=== PATIENT | female | born 1980 | race Caucasian/White ===

== ENCOUNTER → 2019-01-11 16:29 | Outpatient (CLI) | payer OTHER, SELFPAY ==
[2017-02-26 08:21] VITALS: BMI 33.5
[2019-01-11 20:01] LABS: Chlamydia Trachomatis by PCR Negative (Negative); Neisserai gonorrhoeae by PCR Negative (Negative); Probe Check PASS; Sample Adequacy Control PASS; Specimen Processing Control PASS
[2019-01-14 18:33] LABS: HPV APTIMA, High Risk Negative (Negative)
== END ==
PROVIDERS: Visit Provider Obstetrics & Gynecology
DX: Z12.4 Encounter for screening for malignant neoplasm of cervix (principal); Z11.3 Encounter for screening for infections with a predominantly sexual mode of transmission
CPT/HCPCS: 87491; 87591; 87624; 88175; G0145

== ENCOUNTER → 2019-02-08 10:01 | Outpatient (CLI) | payer OTHER, SELFPAY ==
[2019-02-08 10:34] LABS: Absolute Lymphocyte Count 1.94 X10^3/ul (0.83-4.51); Absolute Neutrophil Count 8.7 X10^3/uL (2.0-7.7); Basophil# 0.05 X10^3/uL; Basophil% 0.4 % (0-1); Eosinophil# 0.13 X10^3/uL; Eosinophils% 1.1 % (0-5); Hematocrit 40.6 % (37-47); Hemoglobin 13.5 g/dl (12.0-15.0); Lymphocyte # 1.94 X10^3/ul (4.0); Mean Corp Hgb Conc 33.3 g/gl (32-36); Mean Corpuscular Hgb 30.2 pg (27.0-32.0); Mean Corpuscular Volume 90.8 fL (81-99); Mean Platelet Vol. 9.7 fl (6.2-12.0); Monocyte# 0.61 X10^3/uL; Monocyte% 5.3 % (0-10); Neutrophil # 8.68 X10^3/uL (2.7-7.7); Neutrophil % 75.9 % (47-70); Platelet Count 414 K/mm3 (150-450); RBC Distribution Width CV 12.3 % (11.6-14.6); RBC Distribution Width SD 39.7 fl (35.1-43.9); Red Blood Count 4.47 M/mm3 (4.2-5.4); White Blood Count 11.4 K/mm3 (4.4-11.0)
[2019-02-08 10:35] LABS: POSITIVE COUNT NO; POSITIVE DIFFERENTIAL NO; POSITIVE MORPHOLOGY NO
[2019-02-08 10:40] LABS: Color, Urine Straw (Yellow); Glucose, Dipstick 50 mg/dl (Normal); Ketone-Dipstick Negative (Negative); Leukocyte Esterase-Dipstick 25 /ul (Negative); Nitrite-Dipstick Negative (Negative); Occult Blood-Urine Negative /ul (Negative); Protein-Dipstick Negative (Negative); Urine Bilirubin Dipstick Negative (Negative); Urine Clarity Clear (Clear); Urine Urobilinogen Normal (Normal)
[2019-02-08 10:48] LABS: Amphetamine Urine VISTA NEGATIVE (<1000 ng/mL); Barbiturate Urine VISTA NEGATIVE (< 200 ng/mL); Benzodiazepine Urine VISTA NEGATIVE (< 200 ng/mL); Cocaine Urine VISTA NEGATIVE (< 300 ng/mL); Ecstacy Urine VISTA NEGATIVE (< 500 ng/mL); Methadone Urine VISTA NEGATIVE (< 300 ng/mL); PCP Urine VISTA NEGATIVE (< 25 ng/mL); THC Urine VISTA NEGATIVE (< 50 ng/mL); Vista UDS pH Range 7
[2019-02-08 11:15] LABS: Thyroid Stim Hormone (TSH) 0.37 uIU/mL (0.358-3.74)
[2019-02-08 11:59] LABS: HIV - WCH Non-Reactive (Nonreactive); Rubella IgG 43.8 IU/mL; Vitamin D,25 Hydroxy 17.5 ng/mL (29.95-100.01)
[2019-02-08 13:04] LABS: Hemoglobin A1c 5.6 % (4.2-6.3)
[2019-02-09 11:40] LABS: HEPATITIS B SURFACE AG Negative (Negative); Hep C Antibodies <0.1 s/co ratio (0.0-0.9)
[2019-02-10 20:19] LABS: Prenatal RPR NONREACTIVE (NONREACTIVE)
== END ==
PROVIDERS: Visit Provider Obstetrics & Gynecology
DX: Z34.81 Encounter for supervision of other normal pregnancy, first trimester (principal)
CPT/HCPCS: 36415; 80307; 81002; 82306; 83036; 84443; 85025; 86703; 86762; 86803; 87340

== ENCOUNTER → 2019-06-10 | Outpatient (CLI) | payer OTHER, SELFPAY ==
[2019-06-10 17:26] LABS: Hematocrit 36.5 % (37-47); Hemoglobin 11.8 g/dl (12.0-15.0); Mean Corp Hgb Conc 32.3 g/gl (32-36); Mean Corpuscular Hgb 29.5 pg (27.0-32.0); Mean Corpuscular Volume 91.3 fL (81-99); Mean Platelet Vol. 9.8 fl (6.2-12.0); Platelet Count 315 K/mm3 (150-450); RBC Distribution Width CV 13.8 % (11.6-14.6); RBC Distribution Width SD 45.6 fl (35.1-43.9); Scan Indicated on CBC? Y/N NO
[2019-06-10 17:27] LABS: Glucose Challenge Gest 1H 50g 159 mg/dL (70-140)
== END | disposition home or self-care (01) ==
LOC: WOBLAB 15:34
PROVIDERS: Visit Provider Obstetrics & Gynecology
DX: Z34.82 Encounter for supervision of other normal pregnancy, second trimester (principal)
CPT/HCPCS: 36415; 82950; 85027

== ENCOUNTER → 2019-06-22 | Outpatient (CLI) | payer OTHER, SELFPAY ==
[2019-06-22 07:24] LABS: Glucose GTT-Gestation. Fasting 110 mg/dL (<105)
[2019-06-22 08:44] LABS: Glucose GTT-Gestational 1 Hr 217 mg/dL (<190)
[2019-06-22 10:01] LABS: Glucose GTT-Gestational 2 Hr 199 mg/dL (<165)
[2019-06-22 10:57] LABS: Glucose GTT-Gestational 3 Hr 106 L (<145)
== END | disposition home or self-care (01) ==
LOC: LAB 06:49
PROVIDERS: Family Provider Family Medicine; PCP Family Medicine; Referring Provider Obstetrics & Gynecology; Visit Provider Obstetrics & Gynecology
DX: O24.912 Unspecified diabetes mellitus in pregnancy, second trimester (principal); Z3A.00 Weeks of gestation of pregnancy not specified
CPT/HCPCS: 36415; 82951; 82952

== ENCOUNTER → 2019-07-25 | Outpatient (CLI) | payer OTHER, SELFPAY ==
[2019-07-25 18:10] LABS: Fetal Fibronectin Negative
== END | disposition home or self-care (01) ==
LOC: LABSPEC 17:20
PROVIDERS: Visit Provider Obstetrics & Gynecology
DX: Z34.83 Encounter for supervision of other normal pregnancy, third trimester (principal)
CPT/HCPCS: 82731

== ENCOUNTER 2019-08-07 08:45 | Outpatient (CLI) | payer OTHER, SELFPAY ==
[2019-08-07 09:42] VITALS: BMI 35.6
--- NOTE | 2019-08-07 22:49 | OB.TRI.NOTE ---
History of Present Illness Was patient seen by the physician?: No Reason For Visit: NST Date of Service: 08/07/19 Final TRINIDAD: 09/05/19 Final TRINIDAD Source: US <20 weeks Gestational age: 35 Weeks and 6 Days History of Present Illness: 35+ week intrauterine presents for routine nonstress test for gestational diabetes. Allergies Sulfa (Sulfonamide Antibiotics) Allergy (Verified 02/26/17 08:24) Rash NST - FHR Rate Baby A NST Reactive:: Yes FHR Category:: Category I Impression/Plan 35+ week intrauterine with gestational diabetes for routine nonstress test. Non Stress test is reactive. Routine follow-up in the office later this week.
== END 2019-08-07 09:45 | disposition home or self-care (01) ==
LOC: WPOUT 09:05 → WP 09:07
PROVIDERS: Visit Provider Obstetrics & Gynecology
DX: O24.419 Gestational diabetes mellitus in pregnancy, unspecified control (principal); Z3A.35 35 weeks gestation of pregnancy
CPT/HCPCS: 59025

== ENCOUNTER 2019-08-13 11:15 | Outpatient (CLI) | payer OTHER, SELFPAY ==
[2019-08-13 11:26] VITALS: BMI 35.6
--- NOTE | 2019-08-13 14:04 | OB.TRI.NOTE ---
- Problem List (1) Gestational diabetes mellitus Status: Acute Qualifiers: Gestational diabetes mellitus control: insulin-controlled Trimester: third trimester Qualified Code(s): O24.414 - Gestational diabetes mellitus in , insulin controlled History of Present Illness Date of Service: 08/13/19 Was patient seen by the physician?: Yes Reason For Visit: NONSTRESS TEST Final TRINIDAD: 09/05/19 Final TRINIDAD Source: LMP Gestational age: 36 Weeks and 5 Days History of Present Illness: 39yo @ 36 5/7wga with hx GDM on insulin with macrosomia for scheduled NST Allergies Sulfa (Sulfonamide Antibiotics) Allergy (Verified 08/13/19 11:28) Rash NST - FHR Rate Baby A Baseline: 145 Variability:: Moderate Accelerations:: 15 x 15 Decelerations:: None NST Reactive:: Yes FHR Category:: Category I Uterine Activity:: 1-02/06 Impression/Plan Reactive NST, Cat I FHR -d/c home
== END 2019-08-13 12:55 | disposition home or self-care (01) ==
PROVIDERS: Referring Provider Obstetrics & Gynecology; Visit Provider Obstetrics & Gynecology
DX: O24.414 Gestational diabetes mellitus in pregnancy, insulin controlled (principal); Z3A.36 36 weeks gestation of pregnancy
CPT/HCPCS: 59025; 59050; 99218; G0378

== ENCOUNTER → 2019-08-17 | Outpatient (CLI) | payer OTHER, SELFPAY ==
[2019-08-13 11:26] VITALS: BMI 35.6
== END | disposition home or self-care (01) ==
LOC: LABSPEC 13:39
PROVIDERS: Visit Provider Obstetrics & Gynecology
DX: Z36.85 Encounter for antenatal screening for Streptococcus B (principal)
CPT/HCPCS: 87081

== ENCOUNTER 2019-08-20 08:53 | Outpatient (CLI) | payer OTHER, SELFPAY ==
[2019-08-20 09:17] VITALS: BMI 36.1
--- NOTE | 2019-08-20 23:32 | OB.TRI.NOTE ---
History of Present Illness Date of Service: 08/20/19 Was patient seen by the physician?: No Reason For Visit: NST Date of Service: 08/20/19 Final TRINIDAD: 09/15/19 Final TRINIDAD Source: LMP Gestational age: 36 Weeks and 2 Days History of Present Illness: NST for Gestational DM Allergies Sulfa (Sulfonamide Antibiotics) Allergy (Verified 08/13/19 11:28) Rash NST - FHR Rate Baby A Baseline: 135 Variability:: Moderate Accelerations:: 15 x 15 Decelerations:: None NST Reactive:: Yes FHR Category:: Category I Uterine Activity:: irritabiligty with occasional contractions Impression/Plan Assessment: IUP @ 37w5d, gestational DM Scheduled NST, reactive Plan: Continue scheduled NSTs,follow up in office at next scheduled PNV
== END 2019-08-20 09:40 | disposition home or self-care (01) ==
LOC: WPOUT 08:57 → WP 08:58
PROVIDERS: Referring Provider Advanced Practice Midwife; Visit Provider Advanced Practice Midwife
DX: O24.419 Gestational diabetes mellitus in pregnancy, unspecified control (principal); Z3A.36 36 weeks gestation of pregnancy
CPT/HCPCS: 59025

== ENCOUNTER 2019-08-25 16:00 | Inpatient (IN) | payer OTHER, SELFPAY ==
[2019-08-25] VITALS (11 sets, daily range): BP systolic 119–135; BP diastolic 52–93; PULSE 80–90; RESP 14–18; TEMP 35.8–36.6; O2SAT 97–99; BMI 36.2
[2019-08-25 16:30] LABS: Bedside Glucose 74 mg/dL (70-110)
[2019-08-25] MEDS: Lactated Ringers 1,000 ML 999 ML IV (16:33)
[2019-08-25 17:05] LABS: Absolute Lymphocyte Count 1.93 X10^3/uL (0.83-4.51); Absolute Neutrophil Count 8.1 X10^3/uL (2.0-7.7); Basophil# 0.05 X10^3/uL; Basophil% 0.5 % (0-1); Eosinophil# 0.15 X10^3/uL; Eosinophils% 1.4 % (0-5); Hematocrit 37.6 % (37-47); Hemoglobin 12.6 g/dL (12.0-15.0); Lymphocyte # 1.93 X10^3/ul (4.0); Lymphocyte % 17.5 % (19-41); Mean Corp Hgb Conc 33.5 g/dL (32-36); Mean Corpuscular Hgb 30.4 pg (27.0-32.0); Mean Corpuscular Volume 90.8 fL (81-99); Mean Platelet Vol. 9.9 fl (6.2-12.0); Monocyte# 0.79 X10^3/uL; Monocyte% 7.2 % (0-10); NRBC Flagged by Analyzer 0 % (0-5); Neutrophil # 8.05 X10^3/uL (2.7-7.7); Neutrophil % 72.9 % (47-70); Platelet Count 330 K/mm3 (150-450); RBC Distribution Width CV 13.7 % (11.6-14.6); RBC Distribution Width SD 46.3 fl (35.1-43.9); Red Blood Count 4.14 M/mm3 (4.2-5.4)
[2019-08-25] MEDS: Sodium Citrate/Citric Acid 30 ML UDC PO (17:07)
[2019-08-25] MEDS: Lactated Ringers 1,000 ML 150 ML IV (17:34)
[2019-08-25 17:41] LABS: Bedside Glucose 72 mg/dL (70-110)
--- NOTE | 2019-08-25 18:01 | PCM.HP.OB ---
- Problem List (1) Decreased movement Status: Acute Qualifiers: Fetus number: single or unspecified fetus Trimester: third trimester Qualified Code(s): O36.8130 - Decreased movements, third trimester, not applicable or unspecified (2) Macrosomia Status: Acute (3) Gestational diabetes mellitus Status: Acute Qualifiers: Gestational diabetes mellitus control: insulin-controlled History Date of Admission: 08/25/19 Final TRINIDAD: 09/05/19 Final TRINIDAD Source: LMP Gestational age: 38 Weeks and 3 Days History of this : This is a 39 year-old, G [4], P [2012], at 38 3/7 weeks gestational age with insulin controlled gestational diabetes, macrosomia with decreased movement since Thursday. Last movement noted today. Also c/o contractions. No leaking of fluid or vaginal bleeding. US with MFM on 08/22/19 with EFW [id number]. Medical History: Medical History (Last Updated 08/25/19 @ 18:03 by Genie Rosenberg MD) Varicosities of leg I83.90 left leg Allergies Sulfa (Sulfonamide Antibiotics) Allergy (Verified 08/13/19 11:28) Rash Home Medications: Home Medications Vits [Prenatabs FA ] 1 tab PO DAILY 02/26/17 Insulin Aspart [Novolog Vial] 10 units SQ BREAKFAST 08/13/19 Insulin Aspart [Novolog Vial] 10 units SUBCUT DINNER 08/13/19 Insulin Aspart [Novolog Vial] 12 units SQ LUNCH 08/13/19 Insulin NPH Human Isophane [Novolin N] 20 unit SQ BREAKFAST 08/13/19 Insulin NPH Human Isophane [Novolin N] 30 units SUBCUT QHS 08/13/19 Smoking Status: Never smoker Alcohol: None Number of Fetus(es): 1 NST - FHR Rate Baby A Baseline: 130 Variability:: Moderate Accelerations:: 15 x 15 Decelerations:: None NST Reactive:: Appropriate for gestational age FHR Category:: Category I Uterine Activity:: 3/10 History Past Pregnancies: Past Pregnancies Delivery Date Name GA/Weeks Outcome Route Weight Infant Gender Labor Length Anesthesia Delivery Location 12/2000 6 SAB HOME 12/2008 [place] 38 Living 6lb6oz M 16 [facility] 01/2017 [place] 39 Living 8lb3oz F 11 Epidural [facility] Labs: Mom's Problem List Problem Status Onset Code Decreased movement Acute O36.8190 Macrosomia Acute P08.0 Mom's Labs & Results 08/25/19 08/25/19 08/25/19 16:25 16:30 16:30 WBC 11.0 RBC 4.14 L Hgb 12.6 Hct 37.6 MCV 90.8 MCH 30.4 MCHC 33.5 RDW Std Deviation 46.3 H RDW Coeff of Jose Manuel 13.7 Plt Count 330 MPV 9.9 Immature Gran % (Auto) 0.500 Neut % (Auto) 72.9 H Lymph % (Auto) 17.5 L [place] % (Auto) 7.2 Eos % (Auto) 1.4 Baso % (Auto) 0.5 Absolute Neuts (auto) 8.1 H Absolute Lymphs (auto) 1.93 Nucleated RBC % 0 POC Glucose 74 Blood Type O POSITIVE Antibody Screen NEGATIVE 08/25/19 17:33 WBC RBC Hgb Hct MCV MCH MCHC RDW Std Deviation RDW Coeff of Jose Manuel Plt Count MPV Immature Gran % (Auto) Neut % (Auto) Lymph % (Auto) [place] % (Auto) Eos % (Auto) Baso % (Auto) Absolute Neuts (auto) Absolute Lymphs (auto) Nucleated RBC % POC Glucose 72 Blood Type Antibody Screen Course Did the patient receive Yes care? Labs Blood Type: O RH: POSITIVE RPR/VDRL/Syphilis Nonreactive Rubella status Immune HbSAg Negative Date Done: 02/08/19 Chlamydia Negative Gonorrhea Negative HIV/AIDS Non-Reactive Group B Strep: Negative Current Obstetrical History Gestational Diabetes Yes Incompetent Cervix No Infertility No IUGR No Macrosomia Yes Hypertension/Pre-eclampsia No Placenta Previa/Abruption No PTL/PROM No Uterine anomaly No Oligohydramnios No Polyhydramnios Yes Multiple gestation No Past Medical History Asthma No Diabetes No Hypertension No Heart disease No Mitral valve prolapse No Neurologic/Seizure disorder/ Yes: Grand mal tremors when younger Migraines Kidney disease No Liver disease No Varicosities Yes: left leg Clotting disorders/Hx of DVT No Thyroid Dysfunction No Other medical diseases No Psychiatric disorders No Major trauma No Abnormal PAP smear No Sleep apnea No Mammogram in the last 2 years No Social History Marital Status: Alleged father Saqib Hx Smoking No Smoking Status Never smoker Expected Delivery Method: Scheduled Section Number of Visits: 16 Review of Systems Constitutional: Denies: Anorexia, Fever Respiratory: Denies: Shortness of Breath Gastrointestinal: Denies: Nausea, Vomiting Gynecological: Denies: Vaginal bleeding Physical Exam Vitals: AVSS General: Alert, Oriented x3, Cooperative, No apparent distress HEENT: Atraumatic, Normocephalic Cardiovascular: Regular rate, Regular Rhythm, Normal S1, Normal S2 Lungs: Clear to auscultation, Normal air movement, No rhonchi, No wheeze, No rales Abdomen: Soft, Non Tender, Non-Distended, Gravid Extremities:: No edema, Other - left lower extremity varisosities Neurological: Neuro grossly intact PLASTIC PRESS MOLDER: Normal external genitalia Estimated gestational size: Appropriate for gestational size Presentation: Cephalic Cervix Dilation (cm): 4 Station: -3 Effacement (%): 60 Assessment/Plan All Active Problems (Last Updated 08/25/19 @ 18:03 by Genie Rosenberg MD) 39 weeks gestation of (Acute) Gestational diabetes mellitus (Acute) Decreased movement (Acute) Macrosomia (Acute) This is a 39 year-old, G [4], P [2012], at 38 3/7 weeks gestational age. -Proceed as planned for scheduled section -FS glucose at target
[2019-08-25] MEDS: Cefazolin 2 GM in 0.9% Normal Saline 100 ML IV (18:23)
[2019-08-25] MEDS: Ketorolac 30 MG/ML Syringe IV (19:16)
--- NOTE | 2019-08-25 19:38 | OP.PCM_ITS ---
Problem List (1) Decreased movement Status: Acute Qualifiers: Fetus number: single or unspecified fetus Trimester: third trimester Qualified Code(s): O36.8130 - Decreased movements, third trimester, not applicable or unspecified (2) Macrosomia Status: Acute (3) Gestational diabetes mellitus Status: Acute Qualifiers: Gestational diabetes mellitus control: insulin-controlled Report of Operation Description of Surgical Findings:: Normal-appearing tubes and ovaries bilaterally. Normal uterus. Infant weight 4695g (96zb2gd) Delivery Classification: Scheduled Final TRINIDAD: 09/05/19 Gestational age: 38 Weeks and 3 Days [place] doctor who attended delivery (if requested by OB): Rafael Garibay flight instructor: Kaelyn Friend Type of Anesthesia:: Spinal Date of Procedure: 08/25/19 Pre-Operative Diagnosis: 38-3/7 weeks gestational age, gestational diabetes insulin controlled, persistent decreased movement, macrosomia Post-Operative Diagnosis: 38 3/7 weeks gestational age, gestational diabetes - uncontrolled, persistent decreased movement, macrosomia Indications: 39-year-old 4 para 2-0-1-2 at 38-3/7 weeks gestational age with history of gestational diabetes on insulin with good control, macrosomia with resolving polyhydramnios. Patient had reported decreased movement. Given persistence decreased movement she was advised to proceed with delivery w ith previously planned section for macrosomia with EFW greater than 4500 g. The patient also desired tubal sterilization at the time of section. Procedural risks, benefits, indications and alternatives were reviewed. Patient indicated understanding of risk for tubal failure approximately 1 out of 535 women every 10 years, increased risk for ectopic should occur, menstrual related changes. Consents previously signed and again reviewed. Patient and her family were given opportunity to ask questions and questions were answered to their satisfaction. Indications for : Nonreassuring Status, - - Macrosomia Description of Procedure: The patient was taken to the operating room and spinal analgesia was administered. She is placed in a dorsal supine position with left lateral tilt. The perineum and abdomen were prepped and draped in sterile fashion. And the spinal was found to be adequate. A Pfannenstiel incision was made using a scalpel and brought down to incise the subcutaneous tissue and rectus fascia at the midline. Subcutaneous tissue was bluntly dissected off the fascia laterally. The fascial incision was dissected laterally and cephalad using curved Hdez scissors. The superior leaflet of the rectus fascia was grasped using Marcelo clamps and bluntly dissected and sharply dissected from the underlying rectus muscle. In a similar fashion the inferior rectus fascia was dissected from the underlying muscle. The rectus muscles were bluntly at the midline. The peritoneum was identified and entered [sharply]. The bladder blade was placed into the abdomen and the vesicouterine peritoneal fold identified. The fold was incised and a bladder flap created. Bladder blade was then repositioned to the abdomen. A low transverse hysterotomy was made using the [Metzenbaum scissors] to level of the membranes. The hysterotomy was extended bluntly cephalad and caudad. The membranes were then ruptured revealing clear fluid. The head was elevated and brought to the level of the hysterotomy and the infant delivered revealing vigorous [male] infant. The cord was doubly clamped and cut after 30 seconds. The infant was passed to awaiting [nursery personnel]. The placenta was [expressed] from the uterus and appeared intact on inspection. The uterus and adnexae was exteriorized and cleared of debris. The hysterotomy was then repaired using 0 Vicryl running lock suture. The right tube was grasped using Prasanna clamp and a defect creat ed in the mesosalpinx using the Bovie. Proximal and distal ampullary segment was tied using 2-0 plain gut. An approximately 2 cm intervening segment was excised and tagged using Vicryl suture. In similar fashion Winger tubal ligation was performed on the left side. There was good hemostasis at the tubes. Attention was turned to the hysterotomy and there appeared to be a small amount of bleeding thus a second imbricating layer was performed using 0 Vicryl running suture with excellent hemostasis obtained. The bladder blade was removed. The anterior cul-de-sac was cleared of debris. The peritoneum and rectus muscles were reapproximated using 2-0 Vicryl running suture. The rectus fascia was closed using 0 Vicryl running suture. The subcutaneous tissue was reapproximated using 2-0 Vicryl. The skin was closed using 4-0 Monocryl subcuticularly the DOUGH SHEETER under my supervision. Mepilex occlusive dressing was placed over the incision. The fundus was firm. The patient was then tr ansferred to the recovery room without complication. Sponge, instrument, and needle counts were correct ?2. Amniotic Membrane Rupture Type: Artificial Amniotic Fluid Description: Clear Placenta Disposition: [facility] Specimen(s) sent to pathology: 1. Bilateral tubes-right tube tagged 2. Placenta Drain: Aguilar to straight drain Fluids Replaced: 1200 mL Cord Entanglement: None Nuchal Cord Compression: Without compression Cord Vessel Description: 3 Vessels Esitmated Blood Loss (ml): 900 Gender: Male (1 minute): 8 (5 minute): 9 Delayed cord clamping: Yes Antibiotic Given: Ancef 2 grams IV x1 Pt instructed on risks of surgery: Bleeding, Anesthesia Risks, Infection, Failure Rate of 1 to 2%, Injury to surrounding structure(s) including bowel and bladder, Availability of other non-permanent control options Complications: None - Admit VTE Documentation VTE Present on Admission: No VTE Mechan Device Prophylaxis: SCD's VTE Pharm Prophylaxis ordered?: No
[2019-08-25] MEDS: Oxytocin 30 units/NS 500 ml 30 UNITS/500 ML IV.SOLN 167 UNITS IV (19:55)
[2019-08-25 21:01] LABS: Bedside Glucose 93 mg/dL (70-110)
[2019-08-25] MEDS: Lactated Ringers 1,000 ML 100 ML IV (22:57)
[2019-08-26] VITALS (15 sets, daily range): BP systolic 107–121; BP diastolic 66–79; PULSE 70–107; RESP 14–18; TEMP 35.9–36.8; O2SAT 97–100
[2019-08-26] MEDS: Ketorolac 30 MG/ML Syringe IV ×3 (01:01→17:16)
--- NOTE | 2019-08-26 01:39 | PLAC_PTH ---
PATIENT: ZAIRA MCCLELLAND LOC: [facility] U#:[id number] AGE/SX: 39/F ROOM: WP006 RE08/25/[address]: Dr. Genie Huerta MD : 1980 BED: 1 DIS: 08/28/2019 SPEC #: [id number] RECD: 08/26/19 01:52 STATUS: ANGELICA SALVADOR #: [id number] MARISOL: 08/26/19 01:[address]: Genie Girard DEPT: SURGICAL PATHOLOGY RECD BY: Trinity Mcpherson ENTERED: 08/26/19 09:23 SP TYPE: PLACENTA OTHR DR: No Primary Care Phys Tissues: A - Placenta, NOS B - Fallopian tube Procedures: Surgery Specimen Level II Surgery Specimen Level V HEADER OPERATION: Repeat section PRE-OP DIAGNOSIS: Labor and delivery TISSUE SUBMITTED: A. Placenta, B. Fallopian tube MICROSCOPIC DIAGNOSIS A. Placenta: Placental disc - third trimester placenta (613 gm). - focal area of hypovascular villi (2 x 1.5 cm). Membranes - no pathologic diagnosis. Umbilical cord - three blood vessels and no pathologic diagnosis. B. Bilateral fallopian tubes, tubal ligation: Completely transected segments of bilateral fallopian tubes, no pathologic diagnosis. SJ:rg 08/30/19 COMMENT Case has been reviewed in consultation with Dr. Douglass who concurs with the above diagnosis. IDC:AM MICROSCOPIC DESCRIPTION Slides are reviewed. GROSS DESCRIPTION A - SPECIMEN: PLACENTA / CLINICAL INFORMATION: A. Weight: 4.695 kg B. Gestational Age: 38 weeks C. Sex: Male PLACENTAL WEIGHT (POST FIXATION): 613 gm PLACENTAL DIMENSIONS: 21 x 19 x 3.5 cm PLACENTAL SHAPE: Usual ovoid PLACENTAL WEIGHT FOR GESTATIONAL AGE: Over 99th percentile MEMBRANES - Present A. Insertion: Marginal B. Site of rupture from edge: At edge of placental disc C. Color of membrane: Leija-rosado D. Abnormalities: None UMBILICAL CORD - Present A. Color: Leija-rosado B. Insertion: Eccentric C. Length: 30 cm D. Diameter: 1.4 cm E. Number of vessels: Three F. Abnormalities: None PLACENTAL DISC - Present A. Color of surface: Leija-rosado B. surface abnormalities: None C. Maternal cotyledons: Intact with minimal tears D. Attached retro placental clot: No clot E. Cut surface: Dark red and spongy F. Lesions: One lesion, leija-white, 2 x 1.5 cm G. Separate clot: Absent SECTIONS SUBMITTED: 1. Umbilical cord ( end inked) 2. Membrane roll 3. Placental disc, and maternal surfaces, lesion 4. Placental disc, and maternal surfaces 5. Placental disc, and maternal surfaces AM:evie 08/29/19 B - Received is one container labeled with the patient's name and designated bilateral fallopian tubes, right side stitch. The specimen consists of two tubular pieces of leija soft tissue with the right identified with a stitch. The right fallopian tube measures 2 cm in length and 0.6 cm in diameter. The left fallopian tube measures 2 cm in length and 0.7 cm in diameter. The entire specimen is submitted in two cassettes as follows: 1 - right fallopian tube, 2 - left fallopian tube. Both pieces will be sectioned at the time of embedding. / SJ:evie 08/26/19 TC:5 CPT: 20591 x2, 94480
[2019-08-26 01:52] LABS: Pathology Specimen OB SEE PATHOLOGY REPORT
[2019-08-26 06:00] LABS: Bedside Glucose 90 mg/dL (70-110)
[2019-08-26 06:02] LABS: Hematocrit 33.8 % (37-47); Hemoglobin 11.2 g/dL (12.0-15.0); Mean Corp Hgb Conc 33.1 g/dL (32-36); Mean Corpuscular Hgb 30.8 pg (27.0-32.0); Mean Corpuscular Volume 92.9 fL (81-99); Mean Platelet Vol. 9.7 fl (6.2-12.0); Platelet Count 229 K/mm3 (150-450); RBC Distribution Width CV 13.6 % (11.6-14.6); RBC Distribution Width SD 45.7 fl (35.1-43.9); Red Blood Count 3.64 M/mm3 (4.2-5.4); White Blood Count 14.4 K/mm3 (4.4-11.0)
[2019-08-26] MEDS: Lactated Ringers 200 ML 999 ML IV (06:29)
[2019-08-26] MEDS: Acetaminophen 500 MG Tablet 1000 MG PO ×2 (06:30→17:16)
[2019-08-26] MEDS: Lactated Ringers 1,000 ML 100 ML IV (06:43)
--- NOTE | 2019-08-26 08:20 | PN.OBGYN_ITS ---
Patient Problems: Active and Suspected Problems (Last Updated 08/25/19 @ 18:03 by Genie Huerta MD) Decreased movement (Acute) Macrosomia (Acute) Subjective: No issues overnight. Denies nausea or vomiting. Tolerates PO. No flatus yet. OOB. Aguilar remains in situ. Denies pain. Infant is nursing well, but his sugars have been low. Objective: AVSS - Physical Exam General: Alert, Oriented x3, Cooperative, No apparent distress HEENT: Atraumatic, Normocephalic Lungs: Clear to auscultation, Normal air movement Cardiovascular: Regular rate, Regular Rhythm, Normal S1, Normal S2 Abdomen: Bowel Sounds Present, Soft, Non Tender, Non-Distended, - - Incisional dressing c/d/i, lochia scant Extremities: No edema, No Calf Tenderness Neurological: Neuro grossly intact Psych/Mental Status: Normal Affect, Appropriate, Alert and oriented to time, place, person, mood and affect Vital Signs Temp Pulse Resp BP Pulse Ox 97.5 F L 89 16 107/59 L 96 08/27/19 02:18 08/27/19 02:18 08/27/19 02:18 08/27/19 02:18 08/27/19 02:18 Oxygen Delivery Method Room Air Weight: 92.8 kg Body Mass Index (BMI) 36.2 Intake and Output for Last 24 Hours 08/25/19 08/26/19 08/27/19 23:59 23:59 23:59 Intake Total 2132.5 / 2132.5 2293.34 / 2293.34 Output Total 450 / 450 1100 / 1100 Balance 1682.5 / 1682.5 1193.34 / 1193.34 Medical Necessity - Tobacco Use Smoking Status: Never smoker Assessment/Plan All Active Problems (Last Updated 08/25/19 @ 18:03 by Genie Rosenberg MD) 39 weeks gestation of (Acute) Gestational diabetes mellitus (Acute) Decreased movement (Acute) Macrosomia (Acute) This is a 39 year-old, G [4], P [3013] POD#1 s/p PLTCS with BTL doing well. -Routine postop care - -Rh positive, Rubella immune
[2019-08-26 09:36] LABS: Pathology Specimen OB SEE PATHOLOGY REPORT
[2019-08-26] MEDS: 0.9% Saline Lock 10 ML Syringe IV ×2 (12:04→17:16)
[2019-08-26] MEDS: Prenatal Vits Tablet 1 TABLET PO (12:04)
[2019-08-27] MEDS: Ketorolac 30 MG/ML Syringe IV ×2 (00:32→06:24)
[2019-08-27] MEDS: 0.9% Saline Lock 10 ML Syringe IV ×2 (00:32→06:24)
[2019-08-27 02:18] VITALS: BP 107/59; PULSE 89; RESP 16; TEMP 36.4; O2SAT 96
--- NOTE | 2019-08-27 02:30 | NURSING ---
Patient is pumping every 2-3 hours and using swabs to collect milk. Using pump correctly and cleaning pump equipment properly.
--- NOTE | 2019-08-27 09:11 | DCINST_ITS ---
Discharge Diet: No Restrictions Discharge Activity: May not drive while taking narcotic pain medications., May Shower, - - No tub bath, No driving for 1-2 weeks May resume sexual activity in: 4-6 weeks Lifting Restrictions: 10 lb Call your doctor if your incision/area has: Continuous Slow Oozing, Sudden Increased Bleeding, Increased Pain/ Swelling, Increased Redness Suture Line Care: Avoid Pulling/Pushing Remove Dressing in (days):: 3 Cleanse incision/area with: Soap & Water Additional Instructions: If you experience any of the following, contact your healthcare provider. * Bleeding that soaks a pad every hour for 2 hours * Fever 100.4 or higher * Unrelieved incision or abdominal pain * Swelling, redness, discharge or bleeding from your incision or episiotomy site * Your incision begins to separate * Problems urinating (including inability to urinate or burning while urinating). * Visual changes * Severe headache * Flu-like symptoms * Pain or redness in one of both of your breasts * Pain, warmth, tenderness or swelling in your legs, especially the calf area * Frequent nausea and vomiting * Symptoms of depression or anxiety If you experience any of the following, call 911 or go to the nearest Emergency Room. * Chest pain * Problems breathing * Seizure activity * Partial or complete paralysis of a body part, slurred speech, weakness or drooping of the face, or a sudden inability to walk or hold your balance Allergies/Adverse Reactions: Allergies Sulfa (Sulfonamide Antibiotics) Allergy (Verified 08/13/19 11:28) Rash Medications to take at Discharge Vits [Prenatabs FA ] 1 tab PO DAILY 02/26/17 Follow-Up: Call to make an appointment with your doctor for an incision check in 1-2 weeks. You will also need a 6 week post- follow up appointment. Test results from this visit will be discussed in further detail at your follow- up appointment, if applicable. Please Follow Up With: Genie Rosenberg MD When: 1-2 weeks Primary Care Physician: Care Physician,No Primary [Primary Care Provider] -
--- NOTE | 2019-08-27 09:44 | PCM.PN.OB ---
Patient Problems: Active and Suspected Problems (Last Updated 08/25/19 @ 18:03 by Genie Rosenberg MD) Decreased movement (Acute) Macrosomia (Acute) Objective: Patient without complaints. Tolerating diet well. Pumping for breast-feeding and baby in special care nursery. Positive flatus. Wants to stay another day as baby is likely to go home tomorrow. - Physical Exam Vital Signs Temp Pulse Resp BP Pulse Ox 97.5 F L 89 16 107/59 L 96 08/27/19 02:18 08/27/19 02:18 08/27/19 02:18 08/27/19 02:18 08/27/19 02:18 Oxygen Delivery Method Room Air Weight: 204 lb 9.423 oz Body Mass Index (BMI) 36.2 Intake and Output for Last 24 Hours 08/25/19 08/26/19 08/27/19 23:59 23:59 23:59 Intake Total 2132.5 / 2132.5 2293.34 / 2293.34 Output Total 450 / 450 1100 / 1100 Balance 1682.5 / 1682.5 1193.34 / 1193.34 Wound is clean and without any evidence of oozing with Mepilex dressing in place. Good urine output. Medical Necessity - Tobacco Use Smoking Status: Never smoker Assessment/Plan All Active Problems (Last Updated 08/25/19 @ 18:03 by Genie Rosenberg MD) 39 weeks gestation of (Acute) Gestational diabetes mellitus (Acute) Decreased movement (Acute) Macrosomia (Acute) Doing well postoperative day #2 status post section. Continuing present care.
[2019-08-27] MEDS: Prenatal Vits Tablet 1 TABLET PO (12:02)
[2019-08-27] MEDS: Ibuprofen 600 MG Tablet PO ×2 (12:02→18:15)
[2019-08-27 14:00] VITALS: BP 128/70; PULSE 96; RESP 16; TEMP 36.4
[2019-08-27] MEDS: Acetaminophen 500 MG Tablet 1000 MG PO ×2 (14:02→22:58)
[2019-08-27 21:00] VITALS: BP 128/73; PULSE 96; RESP 16; TEMP 36.6; O2SAT 99
[2019-08-28] MEDS: Ibuprofen 600 MG Tablet PO ×3 (00:21→15:17)
[2019-08-28 01:50] VITALS: BP 116/81; PULSE 78; RESP 17; TEMP 36.4
[2019-08-28 08:00] VITALS: BP 124/89; PULSE 85; RESP 18; TEMP 36.7
[2019-08-28] MEDS: Acetaminophen 500 MG Tablet 1000 MG PO (12:21)
[2019-08-28] MEDS: Prenatal Vits Tablet 1 TABLET PO (12:21)
--- NOTE | 2019-08-28 14:29 | PN.OBGYN_ITS ---
Patient Problems: Active and Suspected Problems (Last Updated 08/25/19 @ 18:03 by Genie Huerta MD) Decreased movement (Acute) Macrosomia (Acute) Subjective: Feeling well, tolerating diet well, passing flatus and has had bowel movement; pain well controlled on non narcotic anagesics; infant in special care nursery, doing well; well Objective: AVSS Breasts filling, nipples atraumatic Fundus firm, midline, u/3, lochia scant - Physical Exam General: Alert, Oriented x3, Cooperative HEENT: PERRLA, EOMI Oral: Moist Mucosa Neck: Supple Lungs: Clear to auscultation, Normal air movement Cardiovascular: Regular rate, Regular Rhythm Abdomen: Bowel Sounds Present, Soft, Non Tender, Non-Distended, Passing Flatus Extremities: Capillary Refill Less than 3 Seconds, Edema - mild, bilateral lower extremities Skin: Incision - Pfannenstiel, dressing dry and intact Vital Signs Temp Pulse Resp BP Pulse Ox 98.1 F 85 18 124/89 H 99 08/28/19 08:00 08/28/19 08:00 08/28/19 08:00 08/28/19 08:00 08/27/19 21:00 Oxygen Delivery Method Room Air Weight: 204 lb 9.423 oz Body Mass Index (BMI) 36.2 Intake and Output for Last 24 Hours 08/26/19 08/27/19 08/28/19 23:59 23:59 23:59 Intake Total 2293.34 / 2293.34 Output Total 1100 / 1100 Balance 1193.34 / 1193.34 Medical Necessity - Tobacco Use Smoking Status: Never smoker Assessment/Plan All Active Problems (Last Updated 08/25/19 @ 18:03 by Genie Rosenberg MD) 39 weeks gestation of (Acute) Gestational diabetes mellitus (Acute) Decreased movement (Acute) Macrosomia (Acute) Assessment: PO/PP Day #3, normal postoperative course, normal involution Plan: Discharge instructions reviewed DC home later today when DC'd RTO two weeks for incision check
--- NOTE | 2019-08-28 15:23 | NURSING ---
baby care teaching per [facility]
--- NOTE | 2019-08-28 15:24 | NURSING ---
See [facility] for teaching
--- NOTE | 2019-08-28 18:29 | DCINST_ITS ---
Discharge Diet: No Restrictions Discharge Activity: May not drive while taking narcotic pain medications., May Shower, - - No tub bath, No driving for 1-2 weeks May resume sexual activity in: 4-6 weeks Lifting Restrictions: 10 lbs Call your doctor if your incision/area has: Continuous Slow Oozing, Sudden Increased Bleeding, Increased Pain/ Swelling, Increased Redness Suture Line Care: Avoid Pulling/Pushing Remove Dressing in (days):: 3 Cleanse incision/area with: Soap & Water Additional Instructions: If you experience any of the following, contact your healthcare provider. * Bleeding that soaks a pad every hour for 2 hours * Fever 100.4 or higher * Unrelieved incision or abdominal pain * Swelling, redness, discharge or bleeding from your incision or episiotomy site * Your incision begins to separate * Problems urinating (including inability to urinate or burning while urinating). * Visual changes * Severe headache * Flu-like symptoms * Pain or redness in one of both of your breasts * Pain, warmth, tenderness or swelling in your legs, especially the calf area * Frequent nausea and vomiting * Symptoms of depression or anxiety If you experience any of the following, call 911 or go to the nearest Emergency Room. * Chest pain * Problems breathing * Seizure activity * Partial or complete paralysis of a body part, slurred speech, weakness or drooping of the face, or a sudden inability to walk or hold your balance Allergies/Adverse Reactions: Allergies Sulfa (Sulfonamide Antibiotics) Allergy (Verified 08/13/19 11:28) Rash Medications to take at Discharge Vits [Prenatabs FA ] 1 tab PO DAILY 02/26/17 Insulin Aspart [Novolog Vial] 10 units SQ BREAKFAST 08/13/19 Insulin Aspart [Novolog Vial] 10 units SUBCUT DINNER 08/13/19 Insulin Aspart [Novolog Vial] 12 units SQ LUNCH 08/13/19 Insulin NPH Human Isophane [Novolin N] 20 unit SQ BREAKFAST 08/13/19 Insulin NPH Human Isophane [Novolin N] 30 units SUBCUT QHS 08/13/19 Follow-Up: Call to make an appointment with your doctor for an incision check in 1-2 weeks. You will also need a 6 week post- follow up appointment. Test results from this visit will be discussed in further detail at your follow- up appointment, if applicable. Primary Care Physician: Care Physician,No Primary [Primary Care Provider] -
--- NOTE | 2019-08-28 19:15 | NURSING ---
to [facility]
== END 2019-08-28 18:50 | disposition home or self-care (01) | DRG 785 ==
PROVIDERS: Admitting Provider Obstetrics & Gynecology; Referring Provider Obstetrics & Gynecology; Visit Provider Obstetrics & Gynecology
DX: O36.8130 Decreased fetal movements, third trimester, not applicable or unspecified (principal); O36.63X0 Maternal care for excessive fetal growth, third trimester, not applicable or unspecified; O24.424 Gestational diabetes mellitus in childbirth, insulin controlled; O69.81X0 Labor and delivery complicated by cord around neck, without compression, not applicable or unspecified; Z3A.38 38 weeks gestation of pregnancy; Z37.0 Single live birth
CPT/HCPCS: 59050; 82962; 85025; 85027; 86850; 86900; 86901; 88302; 88307; 99218; J7120; A4216; G0378; J2405

== ENCOUNTER → 2021-05-28 10:24 | Outpatient (CLI) | payer OTHER, SELFPAY ==
[2019-08-25 16:29] VITALS: BMI 36.2
[2021-05-28 11:32] LABS: Hemoglobin A1c 5.2 % (3.8-5.6)
== END ==
PROVIDERS: Visit Provider Obstetrics & Gynecology
DX: Z86.32 Personal history of gestational diabetes (principal)
CPT/HCPCS: 36415; 83036

== ENCOUNTER → 2021-06-07 15:28 | Outpatient (CLI) | payer OTHER, SELFPAY ==
[2019-08-25 16:29] VITALS: BMI 36.2
--- NOTE | 2021-06-07 15:51 | BI_ITS ---
MAMMOGRAPHY - BILATERAL SCREENING REASON FOR EXAM: Female, 41 years old. Routine annual screening examination. PERTINENT HISTORY: Aunt with breast cancer. TECHNIQUE: Digital bilateral breast lise (3D mammographic acquisition) in the CC and MLO projections. 2-D mediolateral oblique (MLO) and craniocaudad (CC) views of both breasts were obtained. CAD: Full Field Digital Mammography with Computer Added Detection was performed. COMPARISON: None. Baseline examination. FINDINGS: Breast Composition: The breasts are heterogeneously dense, which may obscure small masses. There are no dominant masses or suspicious calcifications. Benign-appearing bilateral axillary lymph nodes. No other significant abnormalities are identified. BI/SCRN MAMM (CAD)W/LISE BILAT IMPRESSION: Negative screening mammogram. Yearly followup mammogram recommended. (A) ASSESSMENT CATEGORY: BIRADS Category 2: Benign. A letter regarding these results will be sent to the patient by the facility within 30 days. Approximately 10% of breast cancers are not detected by mammography. A normal mammogram should not delay biopsy of a clinically suspicious abnormality. [id number] Electronically Signed: Frantz Huitron MD at 8:24 EDT , Service support ,
== END ==
LOC: OPBI 15:28
PROVIDERS: PCP Family Medicine; Referring Provider Obstetrics & Gynecology; Visit Provider Obstetrics & Gynecology
DX: Z12.31 Encounter for screening mammogram for malignant neoplasm of breast (principal)
CPT/HCPCS: 77063; 77067

== ENCOUNTER → 2025-04-17 | Outpatient (CLI) | payer BC, SELFPAY ==
--- NOTE | 2025-04-17 10:26 | RAD_ITS ---
PROCEDURE: HIP, UNI W/ PELVIS 2-3 VIEWS 04/17/2025 REASON FOR EXAM: RIGHT HIP PAIN TECHNIQUE: Three views of the right hip COMPARISON: None FINDINGS: No displaced fracture. There is cam type morphology of the right femoral head neck junction. Ftdg-[id number] joint space narrowing in the right hip. Soft tissues are unremarkable. RAD/HIP, UNI W/ Pelvis 2-3 Views IMPRESSION: 1. 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 2. Xugd-[id number] osteoarthritis of the right hip. Reading Location: [facility]
[2025-04-17 12:25] LABS: Absolute Lymphocyte Count 1.64 X10^3/uL (0.83-4.51); Absolute Neutrophil Count 3.4 X10^3/uL (2.0-7.7); Basophil# 0.06 X10^3/uL; Basophil% 1.1 % (0-1); Eosinophil# 0.17 X10^3/uL; Hemoglobin 13.2 g/dL (12.0-15.0); Lymphocyte # 1.64 X10^3/ul (0.83-4.51); Lymphocyte % 29.1 % (19-41); Mean Corpuscular Hgb 30.1 pg (27.0-32.0); Mean Corpuscular Volume 91.1 fL (81-99); Monocyte# 0.36 X10^3/uL; Monocyte% 6.4 % (0-10); NRBC Flagged by Analyzer 0 % (0-5); Neutrophil # 3.39 X10^3/uL (2.7-7.7); Platelet Count 374 K/mm3 (150-450); RBC Distribution Width CV 11.8 % (11.6-14.6); RBC Distribution Width SD 39.4 fl (35.1-43.9); Red Blood Count 4.39 M/mm3 (4.2-5.4); White Blood Count 5.6 K/mm3 (4.4-11.0)
[2025-04-17 13:27] LABS: Hemoglobin A1c 5.6 % (<=5.6)
[2025-04-17 13:54] LABS: Cholesterol 162 mg/dL (<=200); High Density Lipoprotein 56 mg/dL; Low Density Lipoprotein Calc. 96 mg/dL; Triglycerides 49 mg/dL; Very Low Density Lipoprotein 10 mg/dL (5-40); cholesterol:hdl ratio screen 2.88
[2025-04-17 13:58] LABS: Thyroid Stim Hormone (TSH) 0.626 uIU/mL (0.300-4.200); Vitamin D,25 Hydroxy 29.2 ng/mL (30-100)
== END | disposition home or self-care (01) ==
PROVIDERS: PCP Family Medicine; Referring Provider Family Medicine; Visit Provider Family Medicine
DX: M25.551 Pain in right hip (principal); Z13.1 Encounter for screening for diabetes mellitus; Z13.220 Encounter for screening for lipoid disorders
CPT/HCPCS: 36415; 73502; 80061; 82306; 83036; 84443; 85025

== ENCOUNTER → 2025-04-26 | Outpatient (CLI) | payer BC, SELFPAY ==
[2025-05-01 17:09] LABS: HPV APTIMA, High Risk Negative (Negative)
== END | disposition home or self-care (01) ==
LOC: LABSPEC 09:02
PROVIDERS: PCP Family Medicine; Referring Provider Family Medicine; Visit Provider Family Medicine
DX: Z12.4 Encounter for screening for malignant neoplasm of cervix (principal)
CPT/HCPCS: 88175; G0145

== ENCOUNTER → 2025-05-01 | Outpatient (CLI) | payer BC, SELFPAY ==
--- NOTE | 2025-05-01 14:34 | BI_ITS ---
EXAM: SCRN MAMM (CAD)W/LISE BILAT DATE: 05/01/2025 CLINICAL HISTORY: F, Age 44 y/o , SCREENING Patient noted a right breast palpable abnormality 3-1/2 weeks ago which is tender. She noted this at the time of her menses. She does have a maternal aunt who was diagnosed with breast cancer in her 70s. BREAST CANCER RISK ASSESSMENT: Has not been calculated. TECHNIQUE: Bilateral screening digital breast tomosynthesis with 2D and 3D images. Computer aided detection. COMPARISON: Prior exam(s) dated 06/07/2021. FINDINGS: TISSUE DENSITY: The breast tissue is heterogenously dense, which may obscure small masses. Bilateral Breast Mammographic Findings: A radiopaque marker is placed over the right breast palpable abnormality which is located in the lateral, far anterior aspect of the breast. There is a 9 mm nodular masslike density seen in this location which is obscured by the dense heterogeneous breast tissue. Further workup is indicated. There are 2 nodular masslike densities seen in the superior lateral aspect of the right breast. They each measure approximately 15-20 mm. Further workup is indicated. There is a 15 x 20 mm nodular masslike density seen in the superior aspect of the left breast. Further workup is indicated. BI/SCRN MAMM (CAD)W/LISE BILAT IMPRESSION: OVERALL FINAL ASSESSMENT: BIRADS 0 Incomplete: Need additional imaging evaluati on and/or prior mammograms for comparison. RECOMMENDATION: Incomplete: Need additional imaging evaluation and/or prior mammograms for comp arison. Patient should return for LM views of the right and left breast as well as spot compression CC and spot compression MLO v iews of the right and left breast nodular masslike densities and right breast palpable abnormality. An ultrasound will also most likely be needed. A letter with findings and recommendations will be mailed to the patient. Reading Location: [id number]
== END | disposition home or self-care (01) ==
LOC: OPBI 14:33
PROVIDERS: PCP Family Medicine; Referring Provider Family Medicine; Visit Provider Family Medicine
DX: Z12.31 Encounter for screening mammogram for malignant neoplasm of breast (principal)
CPT/HCPCS: 77063; 77067

== ENCOUNTER → 2025-05-10 | Outpatient (CLI) | payer BC, SELFPAY ==
--- NOTE | 2025-05-10 12:32 | BI_ITS ---
EXAM: DIAG MAMM W/CAD, BILAT; BREAST LIMITED UNILATERAL; BILAT BRST LISE STAND ALONE 05/10/2025 CLINICAL HISTORY: 44-year-old female presents for recall of the bilateral breast findings visualized on examination of 05/01/2025. Family history of breast cancer in a maternal aunt in her 70s. TECHNIQUE: Bilateral Diagnostic digital breast tomosynthesis with 2D and 3D images. Computer aided detection. Also, targeted bilateral breast ultrasounds were performed. COMPARISON: Prior exam(s) dated 05/01/2025, 06/07/2021. FINDINGS: MAMMOGRAM: TISSUE DENSITY: The breast tissue is heterogenously dense, which may obscure small masses. The mammogram demonstrates that the patient has dense breasts. Supplemental screening with whole breast ultrasound or MRI may be considered for further evaluation. Right breast: Follow-up examination performed for the right breast masses seen on examination of 05/01/2025. On the present examination, there are a few masses visualized in the retroareolar and upper-outer right breast extending from middle to posterior depth that persists. Left breast: Follow-up examination performed for the left breast mass seen on examination of 05/01/2025. On the present examination, the mass in the superior left breast at middle depth persist. ULTRASOUND: Right breast: Ultrasound performed of the retroareolar and upper-outer right breast demonstrates a complicated cyst with thick internal septations with associated flow in the retroareolar 9 o'clock position measuring 1.1 x 0.7 x 0.5 cm. Also, there is a simple cyst at 11 o'clock 2 cm from the nipple measuring 1.1 x 1.0 x 0.6 cm and at 10 o'clock 4 cm from the nipple measuring 1.5 x 1.4 x 1.5 cm. Left breast: Ultrasound performed of the superior left breast demonstrates 2 adjacent simple cysts at 12 o'clock 3 cm from the nipple measuring 0.7 x 0.7 x 0.6 cm and 0.7 x 0.5 x 0.4 cm. BI/Bilat Brst Lise Stand Alone IMPRESSION: 1. Suspicious right breast mass in the retroareolar 9 o'clock position. Recom mend tissue sampling with ultrasound-guided core needle biopsy. 2. Bilateral simple breast cysts are benign. OVERALL FINAL ASSESSMENT: BIRADS 4B SUSPICIOUS ABNORMALITY-Moderate suspicion f or malignancy (10-50% likelihood of cancer). RECOMMENDATION: Ultrasound core needle biopsy recommended of the right breast. A letter with findings and recommendations will be mailed to the patient. Reading Location: [id number]
== END | disposition home or self-care (01) ==
PROVIDERS: PCP Family Medicine; Referring Provider Family Medicine; Visit Provider Family Medicine
DX: N60.01 Solitary cyst of right breast (principal); N60.02 Solitary cyst of left breast
CPT/HCPCS: 76642; 77062; 77066; G0279

== ENCOUNTER → 2025-05-17 | Outpatient (CLI) | payer BC, SELFPAY ==
--- NOTE | 2025-05-17 15:09 | BRBX_PTH ---
PATIENT: ZAIRA MCCLELLAND LOC: [facility] U#:[id number] AGE/SX: 44/F ROOM: RE05/17/[address]: Dr. Fern Rivas MD : 1980 BED: DIS: 05/17/2025 SPEC #: [id number] RECD: 05/17/25 15:33 STATUS: ANGELICA REQ #: [id number] MARISOL: 05/17/25 15:[address]: Fern Rivas DEPT: SURGICAL PATHOLOGY RECD BY: Mark Crockett ENTERED: 05/18/25 08:06 SP TYPE: BREAST BX OTHR DR: Nettie Pat MD Tissues: A - Right breast, NOS Procedures: Immunohistochemical Stains Surgery Specimen Level IV IHC Stain ADDITIONAL HEADER OPERATION: Biopsy of right breast mass PRE-OP DIAGNOSIS: Right breast biopsy TISSUE SUBMITTED: A- Right breast mass tissue, 9 o'clock, retroareolar Ischemic Time: 1 minute Fixation Time: 28 hours, 21 minutes MICROSCOPIC DIAGNOSIS A. Right breast, mass, 9 o'clock retroareolar, biopsy: * Fibroadipose tissue with benign breast parenchyma and focal organizing fat necrosis - see note. * Note: The fat necrosis is composed of aggregates of foamy histiocytes confirmed by IHC positive for CD68 and negative for Pancytokeratin and Melan-A. E-cadherin highlights the benign breast parenchyma. S-100 highlights the fat cells. MICROSCOPIC DESCRIPTION Slides are reviewed. All matched controls reacted appropriately. These tests were developed and their performance characteristics determined by [facility]. They may not have been cleared or approved by the U.S. Food and Drug Administration. The FDA has determined that such clearance or approval is not necessary.? The above immunohistochemical/dualISH?markers are reviewed by the Pathologist.. GROSS DESCRIPTION A.? Received in formalin labeled with the patient's name and date of . Designated as R breast mass is a 2.5 x 1.4 x 0.3 cm aggregate of leija-yellow soft tissue.? Entirely submitted in 1 cassette. Cold ischemic time: Unknown Formalin fixation time: 28 hours, 21 minutes [place] 05/18/2025 CPT:78661, [id number], [id number]
== END | disposition home or self-care (01) ==
LOC: LABSPEC 15:45
PROVIDERS: PCP Family Medicine; Referring Provider Surgery; Visit Provider Surgery
DX: N64.1 Fat necrosis of breast (principal)
CPT/HCPCS: 88305; 88341; 88342

== ENCOUNTER 2025-08-07 09:00 | Outpatient (RCR) | payer BC, SELFPAY ==
--- NOTE | 2025-05-12 15:44 | HP.PTEVAL ---
Patient's Visit Information Visit Information Visit Information: ZAIRA MCCLELLAND is a 44 year old F referred to Physical Therapy by Dr. Rusty Pratt DO with a diagnosis of OA R HIP AND LUMBAR SPONDYLOSIS. Date of Evaluation: 05/12/25 Physical Therapist: Lianna Levine PT, Cert MDT Visit Plan Frequency: 2x /Week Duration: 6-8 WKS Plan: AQUATIC THERAPY FOR PAIN RELIEF, POSTURE CORRECTION/STRENGTHENING, INSTRUCTION IN APPROPRIATE BODY MECHANICS AND ACTIVITY MODIFICATIONS. DLS STARTING WITH A NEUTRAL SPINE PROGRESSING ROM TOLERATED. ROBER LE ROM, STRETCHING AND STRENGTHENING. HEP INSTRUCTION. 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 HOBBIES: CROSSFIT - ATTEMPTED 2 MONTHS AGO BUT UNABLE. Present symptoms: LOW BACK AND R HIP (POSTERIOR, LATERAL AND GROIN) PAIN. SOME THIGH PAIN AND TIGHTNESS THAT STOPS AT THE KNEE. DENIES LE NUMBNESS AND TINGLING. INTERMITTENT OCCASIONAL POPPING R HIP. INTERMITTENT SNAPPING IN GROIN. Present since: ABOUT 2 Pain Scale: WORST 4/10, LEAST 1/10 Currently: 1/10 Is it getting better, worse or staying the same: STAYING THE SAME Commenced as a result of: COMING UP FROM AN AIR SQUAT WITHOUT ANY WEIGHT AND FELT A POP IN HER LOW BACK. ANOTHER POP IN LOW BACK LOWER ABOUT 1 TO 1.5 MONTHS AGO - WORKING OUT DOING A HANG CLEAN. Symptoms at onset: PAIN BETWEEN HIP AND LOW BACK. SECOND EPISODE IT ALSO HURT IN TAILBONE. Worse: FEAR HER BACK IS GOING TO POP AGAIN BENDING 90 DEG. ANY SQUATTING OR BENDING OVER CAUSES PAIN. PIVOTING ON R FOOT. PROLONGED SITTING, END OF WORK SHIFT AFTER WALKING FROM ROOM TO ROOM TO ROOM. PULLING MODERATE WEIGHT OR MORE (USUALLY BENDING WHEN PULLING). PROLONGED LYING IN SAME POSITION. Better: ICE, MOTRIN, CHANGE OF POSITION, CHANGE OF ACTIVITY, AVOIDANCE OF CERTAIN ACTIVITIES. Disturbed sleep: YES Previous history/Previous treatment: CHIROPRACTIC INCLUDING LUMBAR DECOMPRSSION WITH SOME BENEFIT BUT COULD ONLY GET TO 20% OF BODY WEIGHT BECAUSE IT HURT TOO MUCH. STATES SHE WAS SUPPOSED TO GET TO 80% OF HER BODY WEIGHT. NO BACK OR HIP SURGERY, INJECTIONS OR PHYSICAL THERAPY. Treatment this episode: BACLOFEN PRESCRIBED BY DR. NDIAYE WITHOUT BENEFIT PER PATIENT REPORT. STARTED ANTI-INFLAMMATORY WITH SOME BENEFIT ABOUT 2 WEEKS AGO - CLEANED TAOISM WITH LESS PAIN TODAY. Coughing/sneezing/straining: SNEEZING IS POSITIVE FOR INCREASED PAIN. Gait: PATIENT REPORTS SHE IS UNABLE TO TAKE A FULL STRIDE BACK WITH HER R LEG AND IT TURNS OUT TOO. Bowel or Bladder Dysfunction: NO Accidents: NO Unexplained weight loss: NO Imaging: RESULTS PER DR. PRATT'S RECENT NOTE: 05/03/2025 x-ray lumbar spine: There is mild lower lumbar facet arthrosis 04/17/2025 x-ray right hip: There is mild joint space narrowing there is a cam lesion of the femoral head there is an inferior osteophyte on the femoral head PMH/Recent major surgery: R BREAST BIOPSY PENDING SCHEDULING. Objective Objective: Sitting/Standing Posture: NORMAL LUMBAR LORDOSIS. NO RELEVANT LATERAL LUMBAR SHIFT. Active Correction of posture: INCREASES PAIN. Other Observations: GUARDED GAIT AND TRANSFERS. Sensory deficit: ROBER LE LIGHT TOUCH SENSATION GROSSLY INTACT AND SYMMETRICAL. ROM deficit: ROBER HS, HIP IR, ER AND CALF TIGHTNESS R > L R HIP SEATED: internal rotation @90 degree flexion: 10 degrees + GROIN PAIN external rotation @90 degree extension: 40 degrees + POSTERIOR HIP PAIN Motor deficit: R HIP GROSSLY 4-/5, L HIP GROSSLY 4/5. PATIENT DENIES PAIN WITH R HIP TESTING BUT C/O R LBP WHEN STABILIZING FOR L HIP TESTING. Reflexes: R QUAD 1+, R ACHILLES 1+, L QUAD 1+, R ACHILLES 1+ Dural Signs: NEGATIVE ROBER LE'S. Lumbar mvmt loss: flex - MOD - INCREASES R BACK - W ext - MOD TO JADE - INCREASES R BACK - W R SG - MOD - INCREASES R LBP - W L SG - MOD - INCREASES R BACK - W REPORTS GETTING DOWN ON KNEES TO HELP SON WITH PULL UP AND SHOWING DAUGHTER BATTING STANCE BOTH INCREASED HER BACK PAIN RECENTLY AND SENT SPASMS UP HER BACK. NO SPASMS WITH TESTING TODAY. Core strength: FAIR Palpation: ACUTE TENDERNESS R ISCHIAL TUBEROSITY AND GREATER TROCH REGIONS. PATIENT ALSO HAS A REFLEX REACTION TO PALPATION OF R LOWER LUMBAR REGION WHICH SHE REPORTS IS CHRONIC AND NOT PAINFUL. INCREASED MUSCLE TONE ROBER LOWER THORACIC AND LUMBAR PARASPINALS. Balance/Special Test Scores Oswestry Low Back Score: 13 Lower Extremity Functional Score: 53 Goals Goal 1:: DECREASE C/O LOW BACK AND R LE SX'S BY AT LEAST 50% TO EASE ADL AND WORK FUNCTION Goal Time Frame: 6-8 Weeks Goal 2:: IMPROVE ADL, RECREATIONAL, PERSONAL CARE, HOUSEWORK, WALKING, STAIR CLIMBING, STANDING, SLEEPING, AND SITTING FUNCTION WITH AT LEAST 8 POINT IMPROVEMENT IN LEFS QUESTIONNAIRE SCORE. Goal Time Frame: 6-8 Weeks Goal 3:: INDEP LAND AND POOL EX PROGRAMS. Goal Time Frame: 6-8 Weeks Rehabilitation Potential Physical Therapy Diagnosis: CORE AND ROBER LE (R>L) WEAKNESS AND STIFFNESS WITH PAIN, GAIT AND ADL DIFFICULTY Rehabilitation Potential: Good Anticipated Interventions Patient/Client Instruction: Educate patient on: Condition, Plan of Care and Risk Factors For the Purpose of:: To improve self management Therapeutic Exercise to Include: Strength training, Body mechanics, Postural training, Flexibilty training, Gait and locomotor training, Neuromotor development, In an aquatic setting and Dynamic Lumbar Stabilization For the Purpose of:: To decrease pain, To increase ROM, To improve muscle performance and motor function, To increase tolerance to activity/condition/position, To improve ability of physical actions for home/community/work/leisure, To improve gait and locomotor functions, To increase flexibility/ROM and To improve self management Text: Thank you for the opportunity to evaluate your patient. For Medicare and Medicare HMO plans, please review the plan of care and approve it. It will need to be FAXED BACK to us at [phone] for Medicare purposes. For Medicare only, by signing this I certify the plan of care. Please let me know if there are questions or concerns regarding this plan of care. Physician Signature: Date:
--- NOTE | 2025-08-07 10:04 | HP.PTDCSUM ---
Discharge Summary D/C summary: It has been my pleasure to treat ZAIRA MCCLELLAND referred by Dr. Rusty Pratt DO, with the diagnosis of OA R HIP AND LUMBAR SPONDYLOSIS for a total of 12 visit(s). Discharge Date: 08/07/25 Please see the following information for a summary of their discharge status. Subjective Subjective: PATIENT REPORTS HER R HIP AND R KNEE CLICK ALL THE TIME. SHE REPORTS HER PRESCRIPTION ANTI-INFLAM IS PRN NOW BUT SHE HASN'T TAKEN IT FOR ABOUT A MONTH NOW. SHE THINKS IT WAS HELPING MORE WHEN SHE WAS TAKING IT REGULARLY. NOW REPORTS SHE IS JUST TAKING IBUPROFEN AND USUALLY JUST ON FRIDAYS WHEN SHE CLEANS. USUALLY ON HAS TO DO STEPS TO GET IN/OUT OF HOUSE (3) AND DOESN'T HAVE A PROBLEMS WITH THEM EXCEPT AFTER CLEANING. REPORTS BEING ABLE TO GO UP/DOWN STEPS RECIP W/O HR EXCEPT FRIDAYS THEN TAKES THEM ONE AT A TIME. PATIENT REPORTS IF SHE ISN'T TOO ACTIVE SHE IS OK BUT IS SHE TRIES TO DO ANYTHING ABOVE LIGHT ACTIVITY SHE GETS SORE. SHE STATES SHE WAS SURPRISED HOW SOME OF THE LIGHT POOL EX'S WOULD EVEN MAKE HER SORE. 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 Pain R LOW BACK: Pain Intensity (Out of 10): 0 R HIP: Pain Intensity (Out of 10): 2 R KNEE: Pain Intensity (Out of 10): 1 Overall Improvement % Improvement: 20 Objective Objective/Function: PATIENT WAS SEEN TODAY FOR RE-ASSESSMENT OF PROGRESS TOWARD THE SET PT GOALS AND THE NEED FOR FURTHER PHYSICAL THERAPY VS READINESS FOR DISCHARGE. THIS PATIENT CONTINUES TO HAVE SIGNIFICANT LUMBAR AND R HIP MVMT LOSS AND DYSFUNCTION. PHYSICIAN RE-ASSESSMENT RECOMMENDED. PATIENT AGREEABLE. UPON EXAM TODAY: Sensory deficit: ROBER LE LIGHT TOUCH SENSATION GROSSLY INTACT AND SYMMETRICAL. ROM deficit: ROBER HS, HIP IR, ER AND CALF TIGHTNESS R > L R HIP SEATED: internal rotation @90 degree flexion: 10 degrees + GROIN PAIN external rotation @90 degree extension: 40 degrees + POSTERIOR HIP PAIN Motor deficit: R HIP GROSSLY 4-/5, L HIP GROSSLY 4/5. PATIENT DENIES PAIN WITH R HIP TESTING BUT C/O R LBP WHEN STABILIZING FOR L HIP TESTING. Reflexes: R QUAD 1+, R ACHILLES 1+, L QUAD 1+, R ACHILLES 1+ Dural Signs: POSITIVE R LE. Lumbar mvmt loss: flex - MOD - INCREASES R BACK - NW ext - MOD R SG - MOD - INCREASES R BACK - NW L SG - MOD - INCREASES R BACK - W - IT FEELS LIKE IT NEEDS TO POP NOW. Core strength: FAIR Palpation: NO ACUTE LOWER THORACIC, LUMBAR, SACRAL, HIP OR KNEE TENDERNESS TODAY. INCREASED MUSCLE TONE ROBER LOWER THORACIC AND LUMBAR PARASPINALS. STEPS: TODAY PATIENT IS ABLE TO EASILY ASCEND AND DESCEND STEPS RECIPROCALLY WITHOUT HR OR DEVIATION. SHE REPORTS THIS CHANGES AFTER ACTIVITY SUCH DOING HER CLEANING JOB. Goals Goal 1:: DECREASE C/O LOW BACK AND R LE SX'S BY AT LEAST 50% TO EASE ADL AND WORK FUNCTION Goal Progress: Not Progressing Goal 2:: IMPROVE ADL, RECREATIONAL, PERSONAL CARE, HOUSEWORK, WALKING, STAIR CLIMBING, STANDING, SLEEPING, AND SITTING FUNCTION WITH AT LEAST 8 POINT IMPROVEMENT IN LEFS QUESTIONNAIRE SCORE. Goal Progress: Not Progressing Goal 3:: INDEP LAND AND POOL EX PROGRAMS. Goal Progress: Not Progressing Plan Plan: D/C DUE TO LACK OF SIGNIFICANT PROGRESS. D/C Information d/c sentence: If there are questions or concerns regarding this patient's physical therapy, please feel free to call me at [phone]. Thank you for the referral of this patient. Sincerely, Lianna Levine, PT, Cert MDT Balance/Gait/Functional tests Balance/Special Test Scores Oswestry Low Back Score: 10 Lower Extremity Functional Score: 53 Improvement % Improvement: 20
== END 2025-08-07 19:00 | disposition home or self-care (01) ==
LOC: PT 09:00
PROVIDERS: PCP Family Medicine; Referring Provider Orthopaedic Surgery; Visit Provider Orthopaedic Surgery
DX: M16.11 Unilateral primary osteoarthritis, right hip (principal); M47.816 Spondylosis without myelopathy or radiculopathy, lumbar region
CPT/HCPCS: 97113; 97162; 97530

== ENCOUNTER → 2025-08-31 | Outpatient (CLI) | payer BC, SELFPAY ==
--- NOTE | 2025-08-31 09:21 | US_ITS ---
PROCEDURE: BREAST LIMITED UNILATERAL 08/31/2025 REASON FOR EXAM: F, Age 45 y/o , RIGHT BREAST MASS Post biopsy follow-up COMPARISON: Mammogram and ultrasound from 05/10/2025. TECHNIQUE: Sonographic evaluation of the upper-outer quadrant of the right breast was performed. No interval change in the appearance of the previously biopsied 0.8 x 0.5 x 0.8 cm nodule at 10-11 o'clock, 5 cm from the nipple. There is a stable solid and cystic lesion in the retroareolar region of the right breast measuring 1 x 0.5 x 0.6 cm which has sonographic characteristics of the lymph node. There is a stable simple cyst at 10 o'clock, 4 cm from the nipple measuring 1.7 x 1.8 x 1.0 cm. There is no new suspicious shadowing solid lesion architectural distortion or suspicious clustered calcifications FINDINGS: Stable post biopsy findings, no interval change since 05/10/2025. US/Breast Limited Unilateral IMPRESSION: Stable post biopsy changes, no suspicious findings BI-RADS 3: PROBABLY BENIGN. RECOMMENDATION: 6 Month Follow-up Reading Location: [id number]
--- NOTE | 2025-08-31 09:21 | US_ITS ---
PROCEDURE: BREAST LIMITED UNILATERAL 08/31/2025 REASON FOR EXAM: F, Age 45 y/o , RIGHT BREAST MASS Post biopsy follow-up COMPARISON: Mammogram and ultrasound from 05/10/2025. TECHNIQUE: Sonographic evaluation of the upper-outer quadrant of the right breast was performed. No interval change in the appearance of the previously biopsied 0.8 x 0.5 x 0.8 cm nodule at 10-11 o'clock, 5 cm from the nipple. There is a stable solid and cystic lesion in the retroareolar region of the right breast measuring 1 x 0.5 x 0.6 cm which has sonographic characteristics of the lymph node. There is a stable simple cyst at 10 o'clock, 4 cm from the nipple measuring 1.7 x 1.8 x 1.0 cm. There is no new suspicious shadowing solid lesion architectural distortion or suspicious clustered calcifications FINDINGS: Stable post biopsy findings, no interval change since 05/10/2025. US/Breast Limited Unilateral IMPRESSION: Stable post biopsy changes, no suspicious findings BI-RADS 3: PROBABLY BENIGN. RECOMMENDATION: 6 Month Follow-up Reading Location: [id number]
== END | disposition home or self-care (01) ==
PROVIDERS: PCP Family Medicine; Referring Provider Surgery; Visit Provider Surgery
DX: N63.10 Unspecified lump in the right breast, unspecified quadrant (principal)
CPT/HCPCS: 76642